=== PATIENT | male | born 1950 | race Caucasian/White ===

== ENCOUNTER → 2022-11-28 14:38 | Outpatient (CLI) | payer OTHER, SELFPAY ==
--- NOTE | 2022-11-28 14:41 | DI.ECHO.S_ITS ---
[facility] +---------+ : : [address] : : [place] : : : : [phone] : : : : Phone: [phone]+ Echocardiogram Report + + :Name: DENVER WRIGHT Study Date: 11/28/2022 Height: 67 in : :[facility] ReadingLocation: Weight: 210 lb : : Gender: Male BSA: 2.1 m2 : :: 1950 Age: 72 yrs BP: 164/78 mmHg: :Reason For Study: Ischemic Heart Disease : :Ordering Physician: REFUGIO, : :CINDY Performed By: Rosio Love : :Referring: CINDY HUFF : + + Interpretation Summary 1) Normal left ventricular size and thickness with mildly reduced systolic function (EF about 45%). 2) Mid to apical septum, distal to apical inferior, and the apex are severely hypokinetic. 3) Grossly, normal right ventricular size and function. 4) No significant valvular abnormalities. 5) Compared to the Echo done 06/14/2021, LVEF has improved 20-25% to 45-50% on [facility] study. Procedure: A two-dimensional transthoracic echocardiogram with color flow and Doppler was performed. The patient was in sinus rhythm with heart rates between 59-65 bpm during the exam. Left Ventricle: The left ventricle is grossly normal size. Left ventricular ejection fraction is estimated to be 45 +/- 5%. Mid to apical septum, distal to apical inferior, and the apex are severely hypokinetic. Diastolic parameters suggest a relaxation abnormality of the left ventricle, consistent with probable normal filling pressures. Right Ventricle: The right ventricle is grossly normal size. The right ventricular systolic function is normal. Atria: The left atrial size is normal. Right atrial size is normal. There is no Doppler evidence for an interatrial shunt. Mitral Valve: The mitral valve is normal in structure and function. There is trace mitral regurgitation. Aortic Valve: The aortic valve is normal in structure and function. There is discrete nodular thickening of the non- coronary cusp. There is no aortic valve stenosis. No aortic regurgitation is present. Tricuspid Valve: The tricuspid valve is normal in structure and function. There is a trace or physiologic amount of tricuspid regurgitation. Pulmonary artery pressures cannot be estimated because of the lack of a measurable TR jet velocity. Pulmonic Valve: The pulmonic valve leaflets are thin and pliable; valve motion is normal. There is mild to moderate pulmonic regurgitation. Great Vessels: The aortic root is normal size. The ascending aorta is at the upper limits of normal in size. The IVC is of normal diameter and collapses greater than 50% with a sniff. This suggests a low right atrial pressure of 3 mm Hg. Pericardium/ Pleura There is no pericardial effusion. There is no pleural effusion. MMode/2D Measurements & Calculations LVIDd: 4.4 cm LVOT diam: 2.1 cm LVIDs: 3.4 cm Ao root diam: 3.8 cm FS: 22.7 % asc Aorta Diam: 3.7 cm EPSS: 0.70 cm IVSd: 0.90 cm LVPWd: 1.0 cm LV trammell. diameter/BSA (cm/m^2): 2.1 LV sys. diameter/BSA (cm/m^2): 1.6 LA dimension: 3.7 cm RA long axis: 4.9 cm LA A2 area: 19.3 cm2 RA area: 15.9 cm2 LA A4 area: 19.8 cm2 RA vol: 43.7 ml LA length (vol): 5.2 cm RA : 21.2 ml/m2 LA vol: 62.4 ml LA vol index: 30.2 ml/m2 LVLs ap4: 8.1 cm LVLd ap2: 8.4 cm LVLs ap2: 7.6 cm TAPSE_phl: 2.8 cm Doppler Measurements & Calculations Ao V2 max: 107.0 cm/sec LVOT Max Tai: 95.3 cm/sec Ao V2 mean: 80.1 cm/sec LV V1 max P.6 mmHg Ao max P.0 mmHg LV V1 VTI: 21.9 cm Ao mean P.0 mmHg LOUIS(I,D): 3.1 cm2 Ao V2 VTI: 24.2 cm LOUIS(V,D): 3.1 cm2 sev ratio: 0.90 LOUIS indexed to BSA (cm^2/m^2): 1.5 MV E max tai: 46.1 cm/sec PA V2 max: 113.0 cm/sec MV A max tai: 75.2 cm/sec PA V2 mean: 74.0 cm/sec MV E/A: 0.61 PA mean P.0 mmHg Med Peak E' Tai: 4.9 cm/sec E/E' med: 9.4 Lat Peak E' Tai: 7.6 cm/sec E/E' lat: 6.0 E/e' average: 7.7 MV dec time: 0.34 sec MVA(VTI): 3.3 cm2 MV V2 mean: 40.0 cm/sec SV(LVOT): 75.9 ml MV mean P.0 mmHg MV V2 VTI: 22.9 cm AV VR_phl: 0.89 LOUIS(VTI)/BSA_phl: 1.5 Reading Physician:04:51 PM
== END ==
PROVIDERS: Referring Provider Orthopaedic Surgery; Visit Provider Orthopaedic Surgery
DX: I37.1 Nonrheumatic pulmonary valve insufficiency (principal); I25.9 Chronic ischemic heart disease, unspecified
CPT/HCPCS: 93306

== ENCOUNTER → 2025-05-10 10:08 | Outpatient (CLI) | payer OTHER, SELFPAY ==
--- NOTE | 2025-05-10 10:11 | DI.ECHO.S_ITS ---
[facility]+ [facility] : : [address] : : [place] : : [phone] : : Phone: [phone] Echocardiogram Report + + :Name: DENVER WRIGHT Study Date: 05/10/2025 Height: 66 in : :Hospital ReadingLocation: Weight: 225 lb : : Gender: Male BSA: 2.1 m2 : :: 1950 Age: 75 yrs BP: 135/74 mmHg: :Reason For Study: ISCHEMIC HEART DISEASE : :Ordering Physician: KEATON, : :NAVIN Performed By: Nacho Beard : :Referring: NAVIN PUGH : + + Interpretation Summary This is a technically difficult study. Next time consider [employer] echocontrast. Normal sinus rhythm. Normal LV size and wall thickness. The left ventricular contractility is moderately compromised. EF is 35-40% with distal inferior, mid-inferior akinesis consistent with infarction in PDA terristory as well as apical and distal septal hypokinesis. Otherwise normal wall motion. Grade 1 diastolic dysfunction. The right ventricular contractility is normal. All cardiac chambers are of normal size. No significant valvular abnormalities. Compared to prior echo obtained 06/02/2024, LV function is slightly less dynamic. Procedure: A two-dimensional transthoracic echocardiogram with color flow and Doppler was performed. The study quality was technically adequate. Comparison is made with the echocardiogram of 06/02/2024. The patient was in normal sinus rhythm during the exam. Left Ventricle: The left ventricle is normal in size. There is normal left ventricular wall thickness. There is no ventricular septal defect visualized. The ejection fraction is estimated to be 35-40%. There are regional wall motion abnormalities as specified. Grade 1 diastolic dysfunction. Right Ventricle: The right ventricle is mildly dilated. The right ventricular systolic function is normal. Atria: The left atrial size is normal. The right atrium is mildly dilated. There is no Doppler evidence for an interatrial shunt. Mitral Valve: The mitral valve leaflets appear normal. There is no evidence of stenosis, fluttering, or prolapse. There is no mitral regurgitation noted. Aortic Valve: The aortic valve is trileaflet. No aortic regurgitation is present. Tricuspid Valve: The tricuspid valve leaflets are thin and pliable. No tricuspid regurgitation. Pulmonic Valve: The pulmonic valve is not well seen, but is grossly normal. There is trace pulmonic regurgitation. Great Vessels: The aortic root is mildly dilated. The ascending aorta is mildly enlarged. The pulmonary artery is normal size. The inferior vena cava was not visualized. Pericardium/ Pleura There is no pericardial effusion. MMode/2D Measurements & Calculations LVIDd: 5.3 cm LVOT diam: 2.1 cm LVIDs: 4.3 cm Ao root diam: 3.8 cm FS: 18.6 % asc Aorta Diam: 3.7 cm EPSS: 1.5 cm IVSd: 0.96 cm LVPWd: 1.1 cm LV trammell. diameter/BSA (cm/m^2): 2.5 LV sys. diameter/BSA (cm/m^2): 2.1 LA A2 area: 17.5 cm2 RA long axis: 4.9 cm LA A4 area: 18.1 cm2 RA area: 17.9 cm2 LA length (vol): 5.1 cm RA vol: 55.2 ml LA vol: 52.4 ml RA : 26.3 ml/m2 LA vol index: 24.9 ml/m2 RVD1 (basal): 4.5 cm RVD2 (mid): 3.5 cm TAPSE: 2.7 cm Doppler Measurements & Calculations Ao V2 max: 106.9 cm/sec LVOT Max Tai: 101.0 cm/sec Ao V2 mean: 80.5 cm/sec LV V1 max P.1 mmHg Ao max P.6 mmHg LV V1 VTI: 23.8 cm Ao mean P.8 mmHg LOUIS(I,D): 3.4 cm2 Ao V2 VTI: 24.2 cm LOUIS(V,D): 3.3 cm2 sev ratio: 0.98 LOUIS indexed to BSA (cm^2/m^2): 1.6 MV E max tai: 48.0 cm/sec PA V2 max: 80.6 cm/sec MV A max tai: 63.0 cm/sec PA V2 mean: 58.8 cm/sec MV E/A: 0.76 PA mean P.5 mmHg Med Peak E' Tai: 6.9 cm/sec PA pr(Accel): 60.2 mmHg E/E' med: 7.0 Lat Peak E' Tai: 8.1 cm/sec E/E' lat: 5.9 E/e' average: 6.5 MV dec time: 0.25 sec SV(LVOT): 83.0 ml Electronically signed by: Kennedi Camilo M.D. on Reading Physician:05/11/2025 01:41 AM
== END ==
PROVIDERS: Referring Provider Chiropractor; Visit Provider Chiropractor
DX: I25.9 Chronic ischemic heart disease, unspecified (principal); I77.89 Other specified disorders of arteries and arterioles; I77.810 Thoracic aortic ectasia
CPT/HCPCS: 93306